=== PATIENT | female | born 1985 | race Caucasian/White ===

== ENCOUNTER 2021-12-28 08:54 | Outpatient (CLI) | payer BC, SELFPAY ==
--- NOTE | 2021-12-28 09:15 | CRLHL7_ITS ---
For Patients: As a result of the Century Cures Act, medical imaging exams and procedure reports are released immediately into your electronic medical record. You may view this report before your referring provider. If you have questions, please contact your health care provider. ULTRASOUND-GUIDED BREAST BIOPSY AND POST-BIOPSY DIGITAL MAMMOGRAM FOR BIOPSY MARKER PLACEMENT, 12/27/2021 CLINICAL HISTORY: LEFT breast mass. COMPARISON STUDIES: Ultrasound 12/20/2021. TECHNIQUE: Real-time ultrasound with image documentation was used for targeting the breast lesion. Core biopsy specimens were obtained using an automated gun with a 14-gauge biopsy needle. Post-biopsy CC and ML digital mammograms were obtained to document position of the biopsy marker. CONSENT and TIME OUT: The procedure, risks, and alternatives were explained to the patient and a consent was signed. [place] Protocol was followed including pre-procedure verification that relevant information/documentation was available, reviewed and properly matched to the patient; consent accurate and complete; and equipment and supplies available. Time Out was conducted just prior to starting procedure to verify the four required elements: patient identity, correct side/site marked (if applicable), procedure, relevant images/results properly labeled and displayed (if applicable). PROCEDURE: The patient was positioned supine on the ultrasound table. The breast was prepped with Betadine or ChloraPrep. 3 cc of 1% lidocaine was injected for superficial anesthesia and 10 cc of 1% lidocaine with epinephrine was injected for deeper anesthesia. Core samples were obtained. A sterile metal biopsy clip was placed percutaneously to maxwell the lesion position within the breast. The specimens were placed in 10% formalin and sent to the pathology department. Pressure was held on the biopsy site until all bleeding subsided. The skin incision was closed with Steri-Strips. An ice pack was positioned over the biopsy site. Post-biopsy instructions were reviewed with the patient, and a written copy was given to her. LATERALITY: LEFT. LESION: LEFT breast 1 o???clock, 9 cm from the nipple, hyperechoic, ill-defined mass measuring 2.1 x 2.7 x 1.1 cm. SUSPICION FOR MALIGNANCY: Low. NUMBER OF SAMPLES: 5. BIOPSY CLIP SHAPE: Coil. PROXIMITY OF CLIP TO TARGET: On target. IMPRESSION: Ultrasound-guided breast biopsy. When the pathology report is available, an addendum to this report will be made. ACR not applicable Britt Orozco M.D. Diagnostic/Breast Radiologist [email or web address] Transcribed: 10:38 a.m. DW/Dictated by: Britt Orozco MD @ 12/28/2021 10:04:00 AM ----- ADDENDUM ----- IMPRESSION: Pathology consistent with PASH. This is concordant. No atypia or malignancy. Resume age appropriate bilateral screening mammography. Dictated by Britt Orozco MD @ Dec 28 2021 10:04AM Signed by:?Britt Orozco MD @12/28/2021 1:31:03 PM (Electronically Signed)
--- NOTE | 2021-12-28 09:45 | CRLHL7_ITS ---
For Patients: As a result of the Century Cures Act, medical imaging exams and procedure reports are released immediately into your electronic medical record. You may view this report before your referring provider. If you have questions, please contact your health care provider. PLEASE SEE LEFT ULTRASOUND-GUIDED BIOPSY OF SAME DAY. CRL:[email or web address] JEANNIE/Dictated by: Britt Orozco MD @ 12/28/2021 10:04:00 AM (Electronically Signed)
== END 2021-12-28 08:55 | disposition home or self-care (01) ==
PROVIDERS: PCP Physician Assistant; Visit Provider Physician Assistant
DX: N63.20 Unspecified lump in the left breast, unspecified quadrant (principal); N64.89 Other specified disorders of breast; R92.8 Other abnormal and inconclusive findings on diagnostic imaging of breast
CPT/HCPCS: 19083; 77065; 88305; A4648; A4649

== ENCOUNTER 2023-06-18 19:25 | Outpatient (CLI) | payer BC, SELFPAY | END 2023-06-18 19:26 | disposition home or self-care (01) | LOC: SLEEP 19:26 | PROVIDERS: PCP Physician Assistant; Visit Provider Internal Medicine | DX: G47.33 Obstructive sleep apnea (adult) (pediatric) (principal) | CPT/HCPCS: 95810 ==

== ENCOUNTER 2024-02-13 20:26 | Day surgery (SDC) | payer BC, SELFPAY ==
[2024-02-13] VITALS (19 sets, daily range): BP systolic 128; BP diastolic 98; PULSE 92–110; RESP 14–16; TEMP 36.7; O2SAT 94–100; BMI 37.8
--- NOTE | 2024-02-13 20:37 | ED.GENADULT ---
HPI - General Adult General Chief complaint: GI Bleed Stated complaint: blood in stool Time Seen by Provider: 02/13/24 20:30 History of Present Illness HPI narrative: 1 week of rectal bleeding , states worse bleeding today with clots. came in tonight for severe rectal pain. tylenol this evening. 39-year-old woman presenting to the emergency department with concern of intense rectal area pain. She has had intermittent bleeding over the last week but today form some clots 1 larger clot she demonstrates as 5 cm or so was produced and then had severe pain. I acknowledge her tachycardia and she says she is in a lot of pain. Not feeling lightheaded or short of breath otherwise. No noted trauma. Did try some Tylenol. Has tried various dqgw-nwm-rnczjnh creams. Had felt a lump at 1 point. Not really with any abdominal pain. Does not seem to be aware of any hemorrhoidal diagnosis. Expresses embarrassment. Has had 3 kids. No diarrhea and has not noted constipation. Related Data Home Medications ?Medication ?Instructions ?Recorded ?Confirmed sertraline 100 mg tablet 100 mg PO DAILY 02/13/24 02/13/24 sertraline 50 mg tablet 50 mg PO QAM 02/13/24 02/13/24 trazodone 150 mg tablet 150 mg PO QPM 02/13/24 02/13/24 Allergies Allergy/AdvReac Type Severity Reaction Status Date / Time No Known Drug Allergies Allergy Verified 02/13/24 20:35 Review of Systems Status of ROS: Reports: 6 or more systems reviewed and unremarkable except as noted in History and below [facility] Social History Smoking Status: Never smoker How often do you have a drink containing alcohol: 2-4 times a month AUDIT-C Alcohol total score: 2 Non-prescribed substance use: denies use Exam Narrative: Exam Narrative: Clearly very uncomfortable. Labored in her breathing. Skin is warm and dry. Abdomen is soft and nontender. Heart is tachycardic in a regular rhythm. With option trader initially anal exam does show some small hemorrhoidal tissue. Appears particularly tender in the 12 o'clock position. Was far too tender to place anoscope initially. Had been anticipating injection. Const: Vital Signs, click to edit/add: Vital Signs - 24 hr 02/13/24 20:32 11/22/24 21:24 02/13/24 21:30 Temperature 98.0 F Pulse Rate 93 94 Pulse Rate [Pulse Oximeter] 110 H Respiratory Rate 16 Blood Pressure [Ri ght Upper Arm] 128/98 H Pulse Oximetry 98 96 95 Oxygen Delivery Me thod Room Air 02/13/24 21:40 02/13/24 21:45 02/13/24 21:50 Temperature Pulse Rate 102 H Pulse Rate [Pulse Oximeter] Respiratory Rate Blood Pressure [Ri ght Upper Arm] Pulse Oximetry 100 95 96 Oxygen Delivery Me thod 02/13/24 22:00 02/13/24 22:10 02/13/24 22:15 Temperature Pulse Rate 100 92 Pulse Rate [Pulse Oximeter] Respiratory Rate 14 Blood Pressure [Ri ght Upper Arm] Pulse Oximetry 96 96 96 Oxygen Delivery Me thod 02/13/24 22:20 02/13/24 22:30 02/13/24 22:54 Temperature Pulse Rate 94 96 Pulse Rate [Pulse Oximeter] Respiratory Rate Blood Pressure [Ri ght Upper Arm] Pulse Oximetry 98 96 95 Oxygen Delivery Me thod 02/13/24 23:00 02/13/24 23:00 02/13/24 23:10 Temperature Pulse Rate 96 Pulse Rate [Pulse Oximeter] Respiratory Rate 14 Blood Pressure [Ri ght Upper Arm] Pulse Oximetry 97 97 97 Oxygen Delivery Me thod 02/13/24 23:15 02/13/24 23:20 02/13/24 23:30 Temperature Pulse Rate 93 101 H Pulse Rate [Pulse Oximeter] Respiratory Rate Blood Pressure [Ri ght Upper Arm] Pulse Oximetry 94 96 97 Oxygen Delivery Me thod 02/13/24 23:40 02/13/24 23:50 02/14/24 00:00 Temperature Pulse Rate Pulse Rate [Pulse Oximeter] Respiratory Rate Blood Pressure [Ri ght Upper Arm] Pulse Oximetry 98 97 97 Oxygen Delivery Me thod 02/14/24 00:13 02/14/24 00:23 Temperature Pulse Rate Pulse Rate [Pulse Oximeter] Respiratory Rate 14 Blood Pressure [Ri ght Upper Arm] 119/81 Pulse Oximetry 96 97 Oxygen Delivery Me thod Documenting provider has reviewed patient's vital signs: yes Course Vital Signs Vital signs: Initial Vital Signs Temperature 98.0 F 02/13/24 20:32 Temperature Source Temporal Artery Scan 02/13/24 20:32 Pulse Rate 110 H 02/13/24 20:32 Respiratory Rate 16 02/13/24 20:32 Blood Pressure 128/98 H 02/13/24 20:32 Blood Pressure Mean 108 H 02/13/24 20:32 Blood Pressure Position Sitting 02/13/24 20:32 Pulse Oximetry 98 02/13/24 20:32 Oxygen Delivery Method Room Air 02/13/24 20:32 Vital Signs Temperature 98.0 F 02/13/24 20:32 Pulse Rate 110 H 02/13/24 20:32 Respiratory Rate 16 02/13/24 20:32 Blood Pressure 128/98 H 02/13/24 20:32 Pulse Oximetry 98 02/13/24 20:32 Oxygen Delivery Method Room Air 02/13/24 20:32 Temperature 98.0 F 02/13/24 20:32 Pulse Rate 101 H 02/13/24 23:30 Respiratory Rate 14 02/14/24 00:13 Blood Pressure 119/81 02/14/24 00:13 Pulse Oximetry 97 02/14/24 00:23 Oxygen Delivery Method Room Air 02/13/24 20:32 Medications Administered Medications: Discontinued Medications Generic Name Dose Route Start Last Admin Trade Name Freq PRN Reason Stop Dose Admin Hydromorphone HCl 0.5 mg 02/13/24 20:54 02/13/24 21:13 Hydromorphone 0.5 Mg/0.5 Ml Inj IVP 02/13/24 20:55 0.5 mg ONCE ONE Administration Hydromorphone HCl 0.5 mg 02/14/24 00:04 02/14/24 00:08 Hydromorphone 0.5 Mg/0.5 Ml Inj IVP 02/14/24 00:05 0.5 mg ONCE ONE Administration Hydromorphone HCl 0.5 mg 02/14/24 02:02 02/14/24 02:06 Hydromorphone 0.5 Mg/0.5 Ml Inj IVP 02/14/24 02:03 0.5 mg ONCE ONE Administration Sodium Chloride 500 mls @ 1,000 mls/hr 02/13/24 22:26 02/14/24 01:17 0.9 % Sodium Chloride 500 Ml IV 02/13/24 22:55 Infused .Q30M ONE Infusion Lorazepam 0.5 mg 02/13/24 20:55 02/13/24 21:13 Lorazepam 2 Mg/Ml Inj IVP 02/13/24 20:56 0.5 mg ONCE ONE Administration Medical Decision Making MDM Narrative Medical decision making narrative: Given degree of discomfort decided to stop in place IV. In the meantime also nursing placed uroject Also be given Dilaudid and lorazepam and then will reassess possible further investigation with anoscope. This though may not be possible. May be an anal fissure and secondary spasming. Lack of abdominal pain I think less likely to have diverticular bleed. Might have proctitis though has not described any unusual output other than blood. No diarrhea. Perianal/rectal abscess? Did place uroject which did help. IV lot and lorazepam as noted above. Still unable to place anoscope for further exam. Ultimately fanned 4 mL of lidocaine with epinephrine in the perianal area. This did review markedly improved pain allowing for placement of anus scope. I did not notice any abnormalities internally with this in his cope. No active bleeding. However when with true this she is indicating a bump in pain in the 11 o'clock position, with some retraction upon the anal tissue I am able to visualize some soft hemorrhoidal tissue throughout this area. There appears to be a small cut and separation of this tissue here causes marked increase in pain and I see oozing of what looks like purosanguinous material. I do not see clearly thrombosed hemorrhoidal tissue that I would be able to excise; I think her presented degree of pain will require some degree of sedation. Will be sending for CT imaging that pelvis looking for some perianal abscess or fistula. Did review these images and do not appreciate discrete fluid collection. Radiology over-read as below Technique: Postcontrast CT through the pelvis with multiplanar reformats following 108 milliliters Isovue 370 IV contrast Comparison: None Findings: Visualized bowel: No significant abnormality appreciated. The anorectal tissues demonstrate no evidence of appreciated mass lesion, abnormal enhancement, or contrast extravasation. Vascular: No acute abnormality appreciated. Lymph nodes: No acute abnormality appreciated. : IUD present. Bilateral cysts. Soft tissues: No significant abnormality appreciated. No perianal/perirectal stranding or fluid collection seen. Small fat containing umbilical hernia. Bones: No acute fracture. No lytic or blastic lesion. Impression: No abnormal findings appreciated to account for patient`s reported symptoms. Pain is escalating again. Dosed again with Dilaudid but still with intermittent tearing pains. She is desperate for some intervention ?can't you just knock me out?. Have discussed cares with General surgery and anticipated admission for further exam and potential treatment under anesthesia. Hospitalist accepted Medical Records Medical records reviewed: Yes I reviewed the patient's medical records Lab Data Lab results reviewed: Yes I reviewed the patient's lab results Labs: Lab Results 02/13/24 Range/Units 21:05 WBC 5.30 (4.50-11.00) K/uL RBC 3.84 L (4.00-5.20) m/uL Hgb 12.8 (12.0-16.0) gm/dL Hct 38.6 (33.0-51.0) % MCV 101 H (80-100) fL MCH 33 (26-34) pg MCHC 33 (32-36) gm/dL RDW Coeff of Shaun 12.1 (11.5-15.5) % Plt Count 299 (140-440) K/uL Neut % (Auto) 43.9 (42.0-72.0) % Lymph % (Auto) 44.9 H (20-44) % [place] % (Auto) 7.0 (0.0-11.0) % Eos % (Auto) 3.8 (0.0-7.0) % Baso % (Auto) 0.4 (0.0-3.0) % Neut # (Auto) 2.33 (1.7-7.0) K/uL Lymph # (Auto) 2.40 (0.90-2.90) K/uL [place] # (Auto) 0.40 (0.00-0.90) K/UL Eos # (Auto) 0.20 (0.00-0.50) K/uL Baso # (Auto) 0.02 (0.00-0.30) K/uL Abs Immat Gran (auto) 0.00 (0.00-0.30) K/uL Imm/Tot Granulo (auto) 0.0 % Discharge Plan Discharge Clinical Impression: Anal pain, Hemorrhoids Patient Disposition: Admitted As Observation
[2024-02-13] MEDS: LORazepam 2 MG/ML inj 0.5 MG IVP (21:13)
[2024-02-13] MEDS: HYDROmorphone 0.5 mg/0.5 ml inj IVP (21:13)
[2024-02-13 21:20] LABS: Basophils Absolute Auto 0.02 K/uL (0.00-0.30); Basophils Percent Auto 0.4 % (0.0-3.0); Eosinophils Percent Auto 3.8 % (0.0-7.0); Hematocrit 38.6 % (33.0-51.0); Hemoglobin* 12.8 gm/dL (12.0-16.0); Lymphocytes Percent Auto 44.9 % (20-44); Mean Corpuscular HGB Conc 33 gm/dL (32-36); Mean Corpuscular Hemoglobin 33 pg (26-34); Mean Corpuscular Volume 101 fL (80-100); Neutrophils Absolute Auto 2.33 K/uL (1.7-7.0); Neutrophils Percent Auto 43.9 % (42.0-72.0); Platelet Count* 299 K/uL (140-440); RDW Coefficient of Variation % 12.1 % (11.5-15.5); Red Blood Count 3.84 m/uL (4.00-5.20)
[2024-02-13 21:27] LABS: Slide Review Reflex No
--- NOTE | 2024-02-13 22:25 | CRLHL7_ITS ---
For Patients: As a result of the Century Cures Act, medical imaging exams and procedure reports are released immediately into your electronic medical record. You may view this report before your referring provider. If you have questions, please contact your health care provider. Indication: Rectal bleeding, perianal pain Technique: Postcontrast CT through the pelvis with multiplanar reformats following 108 milliliters Isovue 370 IV contrast Comparison: None Findings: Visualized bowel: No significant abnormality appreciated. The anorectal tissues demonstrate no evidence of appreciated mass lesion, abnormal enhancement, or contrast extravasation. Vascular: No acute abnormality appreciated. Lymph nodes: No acute abnormality appreciated. : IUD present. Bilateral cysts. Soft tissues: No significant abnormality appreciated. No perianal/perirectal stranding or fluid collection seen. Small fat containing umbilical hernia. Bones: No acute fracture. No lytic or blastic lesion. Impression: No abnormal findings appreciated to account for patient`s reported symptoms. Please note that all CT scans at this facility use dose modulation, iterative reconstruction, and/or weight-based dosing when appropriate to reduce radiation dose to as low as reasonably achievable. Dictated by Adalberto Parker MD @ 02/13/2024 11:00:14 PM (Electronically Signed)
[2024-02-14] VITALS (28 sets, daily range): BP systolic 101–126; BP diastolic 58–88; PULSE 66–104; RESP 10–20; TEMP 36–36.9; O2SAT 96–100; BMI 37.8
[2024-02-14] MEDS: HYDROmorphone 0.5 mg/0.5 ml inj IVP ×4 (00:08→22:30)
[2024-02-14] MEDS: 0.9 % SODIUM CHLORIDE 500 ML 500 ML 1000 ML IV (00:15)
--- NOTE | 2024-02-14 05:00 | PC.NURSE ---
Shift note: Pt arrived at the unit at 0230 on a bed. She conscious, alert and oriented on arrival. Pt is pleasant and cooperate to treatment and care. She endorsed rectal bleeding worse yesterday with clots and pain. Patient rates her pain at 7/10. Ice pack applied which was effective according patient. V/S on admission was stable as per chart. No rectal bleeding since admission and as at the time of this report but rated pain between 5 and 7. Nurse is waiting for hospitalist review. NPO status maintained for possible surgery today. Ice chips given for dry mouth.
--- NOTE | 2024-02-14 07:42 | W.PM.THH&P_ITS ---
Telehealth- H&P: HPI History of Present Illness Date Seen: 02/14/24 Chief complaint: bloood in stool Narrative: Kari Raya is seen as an Interactive Telehealth visit. Kari Raya is a 39 year old female with Medical history significant for gastric bypass who presented emergency department with complaints of rectal bleeding. Patient reports she has been having rectal pain for quite some time now however over the last 1 week she has been noticing bleeding. However tonight she felt like there was a larger clot that she passed along with few smaller ones. She is still having rectal pain. She denies any abdominal pain, nausea vomiting, fever chills headache or dizziness. Giov-peh-jejvyac creams has not helped. In the emergency department she had Uro-Jet placed. She was also given Dilaudid and lorazepam. ER provider did lidocaine and epi injection to perianal area and were able to do anoscope which showed soft hemorrhoidal tissue throughout the area, appears to be small And separation of the tissue causing marked increase in pain and there was a bruising of her looks like purulent sanguinous material. There is no clear visualization of thrombosed hemorrhoidal tissue. CT abdomen pelvis was done which was negative. ER provider discussed case with general surgery who accepted the patient for possible treatment under anesthesia. Hospitalist service was asked to admit the patient. Review of Systems Narrative: Complete ROS was performed, pertinent positives and negatives per HPI. [facility] Social History What is your current living situation?: I presently have a place to live Problems where you live: no known problems Problems where you live details: N/A In the past 12 months, utilities in danger of being shut off: no In the past 12 mos, have been you worried that your food would run out before you had money to buy more?: never true In the past 12 mos, the food you bought just didn't last and you didn't have money to buy more?: never true Highest level of school completed/degree received: Bachelor's degree Smoking Status: Never smoker Do you use any of these nicotine containing products: None How often do you have a drink containing alcohol: 2-4 times a month Alcohol type: wine How often do you have six or more drinks on one occasion: Never AUDIT-C Alcohol total score: 2 Non-prescribed substance use: denies use How often does anyone, including family, friends and others, physically hurt you : never How often does anyone, including family, friends and others, insult or talk down to you: never How often does anyone, including family, friends and others, threaten you with harm: never How often does anyone, including family, friends and others, scream or curse at you: never service: No Meds Home Medications and Allergies Home Medications ?Medication ?Instructions ?Recorded ?Confirmed ?Type sertraline 100 mg tablet 100 mg PO DAILY 02/13/24 02/13/24 History sertraline 50 mg tablet 50 mg PO QAM 02/13/24 02/13/24 History trazodone 150 mg tablet 150 mg PO QPM 02/13/24 02/13/24 History Allergies Allergy/AdvReac Type Severity Reaction Status Date / Time No Known Drug Allergies Allergy Verified 02/13/24 20:35 Exam Narrative Exam Narrative: Physical Exam GENERAL: ?vital signs reviewed, well developed and nourished, in no distress HEENT: pupils are equal round and reactive to light, extraocular movements are grossly within normal limits and oral mucosa is moist. NECK: Supple HEART: Regular rate and rhythm without any rubs, murmurs, or gallops. LUNGS: Clear to auscultation bilaterally with good air movement throughout ABDOMEN: Observation from nurse assisted exam, abdomen appears soft, nontender, and nondistended with Positive bowel sounds noted. EXTREMITIES: Strength and sensation is observed to be grossly within normal limits in the upper and lower extremities.? No focal strength deficit is observed. SKIN:? Observed warm and dry with color normal Const Vital Signs, click to edit/add: Vital Signs - 24 hr 02/13/24 20:32 02/13/24 21:24 02/13/24 21:30 Temperature 98.0 F Pulse Rate 93 94 Pulse Rate [Pulse Oximeter] 110 H Pulse Rate [Right Pulse Oximeter] Respiratory Rate 16 Blood Pressure [Right Arm] Blood Pressure [Right Upper Arm] 128/98 H Pulse Oximetry 98 96 95 Oxygen Delivery Method Room Air 02/13/24 21:40 02/13/24 21:45 02/13/24 21:50 Temperature Pulse Rate 102 H Pulse Rate [Pulse Oximeter] Pulse Rate [Right Pulse Oximeter] Respiratory Rate Blood Pressure [Right Arm] Blood Pressure [Right Upper Arm] Pulse Oximetry 100 95 96 Oxygen Delivery Method 02/13/24 22:00 02/13/24 22:10 02/13/24 22:15 Temperature Pulse Rate 100 92 Pulse Rate [Pulse Oximeter] Pulse Rate [Right Pulse Oximeter] Respiratory Rate 14 Blood Pressure [Right Arm] Blood Pressure [Right Upper Arm] Pulse Oximetry 96 96 96 Oxygen Delivery Method 02/13/24 22:20 02/13/24 22:30 02/13/24 22:54 Temperature Pulse Rate 94 96 Pulse Rate [Pulse Oximeter] Pulse Rate [Right Pulse Oximeter] Respiratory Rate Blood Pressure [Right Arm] Blood Pressure [Right Upper Arm] Pulse Oximetry 98 96 95 Oxygen Delivery Method 02/13/24 23:00 02/13/24 23:00 02/13/24 23:10 Temperature Pulse Rate 96 Pulse Rate [Pulse Oximeter] Pulse Rate [Right Pulse Oximeter] Respiratory Rate 14 Blood Pressure [Right Arm] Blood Pressure [Right Upper Arm] Pulse Oximetry 97 97 97 Oxygen Delivery Method 02/13/24 23:15 02/13/24 23:20 02/13/24 23:30 Temperature Pulse Rate 93 101 H Pulse Rate [Pulse Oximeter] Pulse Rate [Right Pulse Oximeter] Respiratory Rate Blood Pressure [Right Arm] Blood Pressure [Right Upper Arm] Pulse Oximetry 94 96 97 Oxygen Delivery Method 02/13/24 23:40 02/13/24 23:50 02/14/24 00:00 Temperature Pulse Rate Pulse Rate [Pulse Oximeter] Pulse Rate [Right Pulse Oximeter] Respiratory Rate Blood Pressure [Right Arm] Blood Pressure [Right Upper Arm] Pulse Oximetry 98 97 97 Oxygen Delivery Method 02/14/24 00:13 02/14/24 00:23 02/14/24 02:24 Temperature 98.0 F Pulse Rate Pulse Rate [Pulse Oximeter] 85 Pulse Rate [Right Pulse Oximeter] Respiratory Rate 14 14 Blood Pressure [Right Arm] Blood Pressure [Right Upper Arm] 119/81 112/79 Pulse Oximetry 96 97 97 Oxygen Delivery Method Room Air 02/14/24 02:25 02/14/24 02:44 02/14/24 02:50 Temperature 98.0 F 98.1 F Pulse Rate Pulse Rate [Pulse Oximeter] 85 Pulse Rate [Right Pulse Oximeter] 71 Respiratory Rate 14 14 16 Blood Pressure [Right Arm] 125/87 Blood Pressure [Right Upper Arm] 112/79 Pulse Oximetry 97 97 Oxygen Delivery Method Room Air Room Air Hospitalist - H&P: Result Labs Labs: Short CBC 02/13/24 Range/Units 21:05 WBC 5.30 (4.50-11.00) K/uL Hgb 12.8 (12.0-16.0) gm/dL Hct 38.6 (33.0-51.0) % Plt Count 299 (140-440) K/uL Assessment and Plan Assessment and plan (1) Hemorrhoids: Status: Acute (2) Anal pain: Status: Acute Plan admit to hospital for general surgery eval in am. cont with pain control. Resume home meds. hold of DVT proph due to antcipated procedure in am. Telehealth: Statement Statement Telehealth Visit: Today's History and Physical is provided via interactive telehealth by Sofie Justin MD.? Patient is located at [facility].? Provider is located at [facility].? Nursing staff assisted with the patient's exam. The visit being done today meets criteria for a telehealth visit and the patient or patient?s parent/guardian is aware the visit is a telehealth visit. Camera Start Time: 05:25 Camera End Time: 05:36
[2024-02-14] MEDS: HYDROmorphone 0.5 mg/0.5 ml inj 0.4 MG IVP ×2 (08:02→12:05)
[2024-02-14] MEDS: SODIUM CHLORIDE 0.9 % (FLUSH) 10 ML SYRINGE 5 ML IVF ×3 (08:04→12:06)
[2024-02-14] MEDS: ONDANSETRON 2 MG/ML inj 4 MG IVP (08:12)
[2024-02-14] MEDS: LORazepam 2 MG/ML inj 0.5 MG IVP (10:30)
--- NOTE | 2024-02-14 14:14 | P.GSCN_ITS ---
History of Present Illness Consult details Date Seen: 02/14/24 Consult date: 02/14/24 Narrative: Patient presented to the emergency department for severe rectal pain and passage of a large clot. The pain started for her earlier this week. Last night it became very intense, causing her to come into the emergency department. She has never had anything like this before. She does report associated diarrhea and nausea, no fevers at home. She is otherwise healthy. Review of Systems Status of ROS: Reports: 10 or more systems reviewed and unremarkable except as noted in History and below PFSH PFS Social History What is your current living situation?: I presently have a place to live Problems where you live: no known problems Problems where you live details: N/A In the past 12 months, utilities in danger of being shut off: no In the past 12 mos, have been you worried that your food would run out before you had money to buy more?: never true In the past 12 mos, the food you bought just didn't last and you didn't have money to buy more?: never true Highest level of school completed/degree received: Bachelor's degree Smoking Status: Never smoker Do you use any of these nicotine containing products: None How often do you have a drink containing alcohol: 2-4 times a month Alcohol type: wine How often do you have six or more drinks on one occasion: Never AUDIT-C Alcohol total score: 2 Non-prescribed substance use: denies use How often does anyone, including family, friends and others, physically hurt you : never How often does anyone, including family, friends and others, insult or talk down to you: never How often does anyone, including family, friends and others, threaten you with harm: never How often does anyone, including family, friends and others, scream or curse at you: never service: No Meds Home Medications and Allergies Home Medications ?Medication ?Instructions ?Recorded ?Confirmed ?Type trazodone 150 mg tablet 150 mg PO HS 02/13/24 02/14/24 History sertraline 50 mg tablet 150 mg PO DAILY 02/14/24 02/14/24 History Allergies Allergy/AdvReac Type Severity Reaction Status Date / Time No Known Drug Allergies Allergy Verified 02/13/24 20:35 Exam Narrative: Exam Narrative: General: Alert and oriented, no acute distress Respiratory: Equal breath rise bilaterally, maintained on room air CV: Well perfused : Erythema and induration posterior midline, tender to the touch. Digital rectal exam and anoscopy deferred. Const: Vital Signs, click to edit/add: Vital Signs - 24 hr 02/13/24 20:32 02/13/24 21:24 02/13/24 21:30 Temperature 98.0 F Pulse Rate 93 94 Pulse Rate [Pulse Oximeter] 110 H Pulse Rate [Right Pulse Oximeter] Respiratory Rate 16 Blood Pressure [Le ft Arm] Blood Pressure [Ri ght Arm] Blood Pressure [Ri ght Upper Arm] 128/98 H Pulse Oximetry 98 96 95 Oxygen Delivery Me thod Room Air 02/13/24 21:40 02/13/24 21:45 02/13/24 21:50 Temperature Pulse Rate 102 H Pulse Rate [Pulse Oximeter] Pulse Rate [Right Pulse Oximeter] Respiratory Rate Blood Pressure [Le ft Arm] Blood Pressure [Ri ght Arm] Blood Pressure [Ri ght Upper Arm] Pulse Oximetry 100 95 96 Oxygen Delivery Me thod 02/13/24 22:00 02/13/24 22:10 02/13/24 22:15 Temperature Pulse Rate 100 92 Pulse Rate [Pulse Oximeter] Pulse Rate [Right Pulse Oximeter] Respiratory Rate 14 Blood Pressure [Le ft Arm] Blood Pressure [Ri ght Arm] Blood Pressure [Ri ght Upper Arm] Pulse Oximetry 96 96 96 Oxygen Delivery Me thod 02/13/24 22:20 02/13/24 22:30 02/13/24 22:54 Temperature Pulse Rate 94 96 Pulse Rate [Pulse Oximeter] Pulse Rate [Right Pulse Oximeter] Respiratory Rate Blood Pressure [Le ft Arm] Blood Pressure [Ri ght Arm] Blood Pressure [Ri ght Upper Arm] Pulse Oximetry 98 96 95 Oxygen Delivery Me thod 02/13/24 23:00 02/13/24 23:00 02/13/24 23:10 Temperature Pulse Rate 96 Pulse Rate [Pulse Oximeter] Pulse Rate [Right Pulse Oximeter] Respiratory Rate 14 Blood Pressure [Le ft Arm] Blood Pressure [Ri ght Arm] Blood Pressure [Ri ght Upper Arm] Pulse Oximetry 97 97 97 Oxygen Delivery Me thod 02/13/24 23:15 02/13/24 23:20 02/13/24 23:30 Temperature Pulse Rate 93 101 H Pulse Rate [Pulse Oximeter] Pulse Rate [Right Pulse Oximeter] Respiratory Rate Blood Pressure [Le ft Arm] Blood Pressure [Ri ght Arm] Blood Pressure [Ri ght Upper Arm] Pulse Oximetry 94 96 97 Oxygen Delivery Me thod 02/13/24 23:40 02/13/24 23:50 02/14/24 00:00 Temperature Pulse Rate Pulse Rate [Pulse Oximeter] Pulse Rate [Right Pulse Oximeter] Respiratory Rate Blood Pressure [Le ft Arm] Blood Pressure [Ri ght Arm] Blood Pressure [Ri ght Upper Arm] Pulse Oximetry 98 97 97 Oxygen Delivery Me thod 02/14/24 00:13 02/14/24 00:23 02/14/24 02:24 Temperature 98.0 F Pulse Rate Pulse Rate [Pulse Oximeter] 85 Pulse Rate [Right Pulse Oximeter] Respiratory Rate 14 14 Blood Pressure [Le ft Arm] Blood Pressure [Ri ght Arm] Blood Pressure [Ri ght Upper Arm] 119/81 112/79 Pulse Oximetry 96 97 97 Oxygen Delivery Me thod Room Air 02/14/24 02:25 02/14/24 02:44 02/14/24 02:50 Temperature 98.0 F 98.1 F Pulse Rate Pulse Rate [Pulse Oximeter] 85 Pulse Rate [Right Pulse Oximeter] 71 Respiratory Rate 14 14 16 Blood Pressure [Le ft Arm] Blood Pressure [Ri ght Arm] 125/87 Blood Pressure [Ri ght Upper Arm] 112/79 Pulse Oximetry 97 97 Oxygen Delivery Me thod Room Air Room Air 02/14/24 07:50 02/14/24 07:50 02/14/24 11:00 Temperature 98.3 F 98.4 F Pulse Rate Pulse Rate [Pulse Oximeter] Pulse Rate [Right Pulse Oximeter] 83 83 79 Respiratory Rate 18 18 18 Blood Pressure [Le ft Arm] 101/62 110/68 Blood Pressure [Ri ght Arm] Blood Pressure [Ri ght Upper Arm] Pulse Oximetry 97 98 Oxygen Delivery Me thod Room Air Room Air Results Labs Labs: Abnormal lab results 02/13/24 Range/Units 21:05 RBC 3.84 L (4.00-5.20) m/uL MCV 101 H (80-100) fL Lymph % (Auto) 44.9 H (20-44) % All other labs normal. Imaging CT scan - pelvis: report reviewed and image reviewed Progress Note:A&P Assessment and plan (1) Perianal abscess: Status: Acute Assessment and Plan: Patient is a 39-year-old female with clinical exam concerning for possible perianal abscess. A CT scan was performed, this does not demonstrate any large underlying fluid collection. No evidence of external hemorrhoids, skin tags or necrotic tissue during my examination. Due to the patient's discomfort recommend an exam under anesthesia with incision and drainage of perianal abscess. Risks and benefits of surgery were discussed at length the patient. Risks included, but were not limited to: Bleeding, infection, risk of damage to surrounding structures and possible need for additional procedures. All questions and concerns were addressed with patient agreeing to proceed. Plan OR for exam under anesthesia, incision and drainage perianal abscess
[2024-02-14] MEDS: PIPERACILLIN/TAZOBACTAM 3.375 GM INJ IVPB (16:13)
[2024-02-14] MEDS: BUPIVACAINE 0.5% 30 ML INJECTION (16:23)
[2024-02-14] MEDS: BUPIVACAINE LIPOSOME 133 MG/10 ML INJ INFILTRATI (16:23)
--- NOTE | 2024-02-14 16:38 | W.ANESCHARGE ---
Anesthesia Charges Start Date/Time Anesthesia Start Date: 02/14/24 Anesthesia Start Time: 15:45 Stop Date/Time Anesthesia Stop Date: 02/14/24 Anesthesia Stop Time: 16:34
--- NOTE | 2024-02-14 16:41 | PM.GSPRC ---
Operative Note Date of procedure: 02/14/24 Pre-op diagnosis: Perianal abscess Post-op diagnosis: Intersphincteric abscess Type of Procedure: Exam under anesthesia, incision and drainage perianal abscess Indications: Patient is a 39-year-old female who presented with severe perianal pain. Risks and benefits of exam under anesthesia with incision and drainage of perianal abscess were discussed at length. Risks include, but are not limited to: Infection, bleeding, recurrence, urinary retention, changes in fecal continence with any anal surgery and the need for additional procedures. All questions and concerns were addressed with patient agreeing to proceed. Procedure Description: The patient was brought to the Operating Room, placed in the supine position, a spinal and and anesthetic was administered by Anesthesia without difficulty. The patient was then transferred to the Operating Room table, placed in the prone jackknife position with appropriate bumps and padding. Care was taken to ensure the genitalia and breasts were properly positioned on the hip and chest rolls, respectively. The shoulders and arms were positioned with care to protect the brachial plexus. The buttocks were taped laterally. A sterile prep and drape was done in the usual fashion. A formal timeout for patient safety was performed in accordance with hospital protocol, thereby correctly matching this patient with their diagnosis and intended procedure. External examination, digital rectal examination, and anoscopic examination were all done and revealed a firmness posterior midline with overlying erythema and induration. A 1 cm vertical incision was made approximately 1 cm away from the anal verge directly over this area with very minimal purulence noted. Some blunt dissection was performed with no undrained pockets or fluid collections appreciated. On further palpation and with examination of the anoscope there was a 1 cm laceration of the mucosa posterior midline within the rectal canal. This was initially difficult to appreciate secondary to the mucosal folds. There was a small amount of purulence and underlying abscess cavity appreciated. The cavity measured approximately 1 x 1 x 0.5 cm in size. This did appear to be the main source of the surrounding erythema and induration with evidence of spontaneous rupture prior to proceeding to the operating room. Both cavities were thoroughly irrigated and hemostasis assured. There was no evidence of connection between the 2 incisions. 1 in iodoform tape was placed within the outer perianal incision. Local anesthetic of Exparel and bupivacaine was injected locally and a bilateral pudendal block performed. The patient tolerated procedure well. There were no apparent complications. Instrument, sponge, and needle counts were correct at the end of the case. Findings: Intersphincteric abscess with evidence of rupture prior to proceeding to the operating room. Underlying abscess cavity 1 x 1 x 0.5 cm in size. Anesthesia: MAC and spinal Surgeon: Faye Ledesma MD Estimated blood loss (mL): 5 Condition: stable Disposition: PACU
[2024-02-14] MEDS: AMOXICILLIN/CLAVULANATE 875 mg/125 mg TABLET PO (18:34)
--- NOTE | 2024-02-14 19:36 | PC.NURSE ---
Pt rating 0/10 pain upon returning from PACU after I&D of rectal explorative under anesthesia, see Dr. Ledesma's surgical note. Drain tape from rectum with peripad for any drainage. Up independently, tolerates regular diet, denies n/v.
[2024-02-14] MEDS: TRAZODONE HCL 50 MG TABLET 150 MG PO (21:02)
[2024-02-15 02:57] VITALS: BP 102/65; PULSE 77; RESP 16; TEMP 36.8; O2SAT 94
[2024-02-15] MEDS: ACETAMINOPHEN 325 MG TABLET 650 MG PO (05:36)
[2024-02-15] MEDS: OXYCODONE 5 MG TABLET PO ×2 (05:36→10:09)
--- NOTE | 2024-02-15 06:03 | PC.NURSE ---
End of shift: Pt AxOx4, pleasant, and cooperative. Pt rated pain 3-10/10 of the rectum. Pt stated that she wanted to ?Rip the tape out of her butt? due to the pain it has been causing. Field Staff utilized PRN pain medication, repositioning, and active ice. Pt has small bloody drainage from the rectum. Pad changed x1. Pt indep in room. Pt continent of the bladder. Tolerating reg diet/fluids well. Pt denies nausea. Pt appears resting with call light in reach. ?
[2024-02-15] MEDS: AMOXICILLIN/CLAVULANATE 875 mg/125 mg TABLET PO (08:29)
[2024-02-15 08:32] VITALS: BP 103/71; PULSE 98; RESP 18; TEMP 36.5; O2SAT 99
[2024-02-15] MEDS: KETOROLAC 15 MG/ML inj IVP (10:09)
--- NOTE | 2024-02-15 12:29 | PM.DS1 ---
DS: Providers Provider Date Seen: 02/15/24 Primary care physician: BRAYDEN Dennis Attending Physician on discharge: Faye Ledesma MD DS: Summary Hospital Course Hospital Course: Patient presented to the emergency department on Friday evening with a 1 week history of worsening rectal pain. That Friday she had a large clot pass. I took her to the operating room on Friday for an exam under anesthesia with evidence of an intersphincteric abscess that had spontaneously ruptured. An incision was made posterior midline as well, but no underlying abscess appreciated in that area just associated cellulitis. No fistulous connection between the 2 incisions. The posterior midline incision was packed with iodoform, this was removed on postop day 1. She continues on oral antibiotics, to complete a one-week course. At the time of discharge the patient's pain was well controlled on oral medications, she remained afebrile, she was ambulating independently and tolerating regular diet. Will plan to follow up with the patient in 2 weeks to assess healing. She was encouraged to keep the area clean and soak in a bath daily. Time Spent with Patient Time attestation: Total time spent providing and/or coordinating discharge services: Exam Narrative: Exam Narrative: General: Alert and oriented, no acute distress. Nontoxic in appearance Respiratory: Equal breath rise bilaterally, maintained on room air CV: Well perfused : Posterior midline packing removed, no significant surrounding erythema or induration. Moderate amount of serosanguineous drainage on pad. Const: Vital Signs, click to edit/add: Vital Signs - 24 hr 02/14/24 15:00 02/14/24 15:00 02/14/24 16:29 Temperature 96.8 F L Pulse Rate 81 Pulse Rate [Right Pulse Oximeter] Respiratory Rate 18 18 18 Blood Pressure 111/68 Blood Pressure [Ri ght Arm] Pulse Oximetry 97 97 Oxygen Delivery Me thod Room Air Room Air 02/14/24 16:35 02/14/24 16:40 02/14/24 16:45 Temperature 96.8 F L Pulse Rate 81 74 78 Pulse Rate [Right Pulse Oximeter] Respiratory Rate 11 L 14 12 Blood Pressure 112/76 106/69 114/72 Blood Pressure [Ri ght Arm] Pulse Oximetry 98 100 100 Oxygen Delivery Me thod Room Air Room Air Room Air 02/14/24 16:50 02/14/24 16:55 02/14/24 17:00 Temperature 96.8 F L Pulse Rate 69 66 68 Pulse Rate [Right Pulse Oximeter] Respiratory Rate 10 L 12 12 Blood Pressure 101/72 120/76 119/79 Blood Pressure [Ri ght Arm] Pulse Oximetry 99 97 97 Oxygen Delivery Me thod Room Air Room Air Room Air 02/14/24 17:08 02/14/24 17:15 02/14/24 17:30 Temperature 98.2 F 98.2 F 98.2 F Pulse Rate 71 75 73 Pulse Rate [Right Pulse Oximeter] Respiratory Rate 16 16 18 Blood Pressure 113/79 115/79 117/85 Blood Pressure [Ri ght Arm] Pulse Oximetry 97 98 98 Oxygen Delivery Me thod Room Air Room Air Room Air 02/14/24 17:45 02/14/24 18:00 02/14/24 18:30 Temperature 98.2 F 98.4 F 98.1 F Pulse Rate 71 87 104 H Pulse Rate [Right Pulse Oximeter] Respiratory Rate 18 20 20 Blood Pressure 122/81 120/88 126/75 Blood Pressure [Ri ght Arm] Pulse Oximetry 98 97 98 Oxygen Delivery Me thod Room Air Room Air Room Air 02/14/24 19:00 02/14/24 20:00 02/14/24 21:00 Temperature 98.2 F 98.1 F 98.5 F Pulse Rate 76 79 79 Pulse Rate [Right Pulse Oximeter] Respiratory Rate 18 20 16 Blood Pressure 116/75 112/75 116/85 Blood Pressure [Ri ght Arm] Pulse Oximetry 97 96 97 Oxygen Delivery Me thod Room Air Room Air Room Air 02/14/24 22:00 02/14/24 23:00 02/15/24 02:57 Temperature 98.5 F 97.8 F 98.3 F Pulse Rate 80 78 Pulse Rate [Right Pulse Oximeter] 77 Respiratory Rate 16 16 16 Blood Pressure 105/58 L 104/61 Blood Pressure [Ri ght Arm] 102/65 Pulse Oximetry 98 96 94 Oxygen Delivery Me thod Room Air Room Air Room Air 02/15/24 08:32 Temperature 97.7 F Pulse Rate Pulse Rate [Right Pulse Oximeter] 98 Respiratory Rate 18 Blood Pressure Blood Pressure [Ri ght Arm] 103/71 Pulse Oximetry 99 Oxygen Delivery Me thod Room Air Discharge Plan Discharge Disposition: Home w/ Parent or Adult Discharging Surgeon: Faye Ledesma Follow-Up Appointment: 2 week follow up, [facility] Prescriptions: New hydrocodone-acetaminophen 5-325 mg tablet 1 tab PO Q6H PRN (Reason: pain) Qty: 25 0RF senna 8.6 mg capsule 8.6 mg PO DAILY PRN (Reason: constipation) Qty: 90 0RF lidocaine HCl [Lidozion] 3 % lotion 1 applic topical TID PRN (Reason: pain) Qty: 177 0RF amoxicillin-pot clavulanate 875-125 mg tablet 1 tab PO BID Qty: 14 0RF Continued trazodone 150 mg tablet 150 mg PO HS sertraline 50 mg tablet 150 mg PO DAILY Activity Level: No strenuous activity Activity Detail: Activity as tolerated. Avoid strenuous activity. No lifting greater than 20 lb for 2 weeks. Discharge Diet: Regular Patient Instructions: Hydrocodone/Acetaminophen (By mouth), Lidocaine (On the skin), Senna (By mouth), Sitz Bath (DC), Rectal Abscess (DC), Dr. Chapin's Post Hemorrhoidectomy Instructions Additional Instructions: You were prescribed a narcotic pain medication. In addition you may supplement with Tylenol and/or ibuprofen. Be sure to not exceed greater than 4 g of Tylenol in a 24 hour period. While on narcotic pain medicine please take stool softeners. A prescription of stool softeners has been sent to the pharmacy. Stop if having greater than 2 stools per day. A prescription for lidocaine gel has also been sent to your pharmacy, another option would an [id number] lidocaine lotion. Soak in his Sitz baths for comfort daily. Follow-up with Dr. Ledesma in 2-3 weeks. Please call if you are experiencing severe pain, nausea, vomiting, difficulty urinating, fever or not had a bowel movement in 4 days after surgery. Follow-up: Judi Owen PA [Primary Care Provider] - Discharge Orders: Discharge Order (Routine); Ordered 02/15/24 Ordered By: Faye Ledesma
== END 2024-02-15 15:03 | disposition home or self-care (01) ==
LOC: ED 02-14 02:05 → OR 02-14 02:16 → MEDSURG 02-14 02:16
PROVIDERS: Emergency Provider Family Medicine; PCP Physician Assistant; Visit Provider Surgery
PROC: (CPT 46050; principal; 2024-02-14 14:30)
DX: K61.0 Anal abscess (principal); K61.4 Intrasphincteric abscess; K62.89 Other specified diseases of anus and rectum; R00.0 Tachycardia, unspecified
CPT/HCPCS: 46050; 00902; 36415; 72193; 85025; 86140; 94761; 99284; 99285; A9270; C9290; J0665; J1100; J1171; J1885; J2060; J2250; J2371; J2405; J2543; J2704; J7030; Q9967

== ENCOUNTER 2025-02-24 18:34 | Emergency (ER) | payer BC, SELFPAY ==
[2025-02-24 18:39] VITALS: BP 145/107; PULSE 122; RESP 18; TEMP 36.7; O2SAT 97; BMI 42.9
--- NOTE | 2025-02-24 18:46 | ED.GENADULT ---
HPI - General Adult General Date Seen: 02/24/25 Chief complaint: Breast Symptoms Stated complaint: L breast infection, very painful Time Seen by Provider: 02/24/25 18:46 Source: patient and RN notes reviewed Mode of arrival: ambulatory Limitations: no limitations History of Present Illness HPI narrative: Kari is a very pleasant 40-year-old female with history of recent Ozempic initiation, perianal abscess, and frequent breast pustules who comes to the emergency room with increasing redness and pain in her left breast. Kari has had years of difficulty with simple formation on her breasts and arms. She notes that earlier this week she actually had a ultrasound because of an area of concern on a recent mammogram. It turned out to be okay according to her. Today she was in the shower and noticed left breast pain and saw a lot of redness around 1 of the pustules. She has not had fever or chills. Earlier today she was somewhat nauseated. Denies a history of MRSA. In the past [employer] has worked well for her. Related Data Home Medications ?Medication ?Instructions ?Recorded ?Confirmed trazodone 150 mg tablet 150 mg PO HS 02/13/24 02/24/25 sertraline 50 mg tablet 150 mg PO DAILY 02/14/24 02/24/25 semaglutide 0.25 mg or 0.5 mg (2 0.25 mg subcut QWEEK 02/24/25 02/24/25 mg/3 mL) subcutaneous pen injector (Ozempic) tirzepatide (weight loss) 2.5 2.5 mg subcut 02/24/25 mg/0.5 mL subcutaneous pen injector (Zepbound) Previous Rx's ?Medication ?Instructions ?Recorded sennosides 8.6 mg capsule (senna) 8.6 mg PO DAILY PRN constipation 02/14/24 #90 caps Allergies Allergy/AdvReac Type Severity Reaction Status Date / Time No Known Drug Allergies Allergy Verified 02/24/25 18:38 Review of Systems Status of ROS: Reports: 6 or more systems reviewed and unremarkable except as noted in History and below Const: Denies: fever, chills or fatigue ENMT: Denies: nasal congestion Cardio: Denies: shortness of breath with exertion Resp: Denies: shortness of breath or cough GI: Reports: nausea; Denies: vomiting Integ/Breast: Reports: redness, skin pain, skin tenderness and sores Endo: Denies: fatigue PFSH PFS Social History What is your current living situation?: I presently have a place to live Problems where you live: no known problems Problems where you live details: N/A In the past 12 months, utilities in danger of being shut off: no In past 12 months, lack of transportation kept you from medical appts, meetings, work, or getting things needed for daily living: no In the past 12 mos, have been you worried that your food would run out before you had money to buy more?: never true In the past 12 mos, the food you bought just didn't last and you didn't have money to buy more?: never true Highest level of school completed/degree received: Bachelor's degree Smoking Status: Never smoker Do you use any of these nicotine containing products: None How often do you have a drink containing alcohol: 2-4 times a month Alcohol type: wine How often do you have six or more drinks on one occasion: Never AUDIT-C Alcohol total score: 2 Non-prescribed substance use: denies use How often does anyone, including family, friends and others, physically hurt you: never How often does anyone, including family, friends and others, insult or talk down to you: never How often does anyone, including family, friends and others, threaten you with harm: never How often does anyone, including family, friends and others, scream or curse at you: never service: No Exam Narrative: Exam Narrative: Alert and oriented. Somewhat anxious, tachycardic at this time. Her ears eyes nose clear. Otherwise normal heart sounds. Lungs are clear bilaterally. No difficulty was moving extremities. Examination of the breasts shows multiple times size lesions that are raised with scarred edges and central scabbing. On the left breast there is a lesion with surrounding erythema and some erythema following lymph channels. I do palpate this area which is tender but I do not palpate a mass. On her arms patient has a few of these lesions. There are other scarred areas noted. Const: Vital Signs, click to edit/add: Vital Signs - 24 hr 02/24/25 18:39 Temperature 98.1 F Pulse Rate [Pulse Oximeter] 122 H Respiratory Rate 18 Blood Pressure [Le ft Upper Arm] 145/107 H Pulse Oximetry 97 Oxygen Delivery Me thod Room Air Documenting provider has reviewed patient's vital signs: yes Course Course ED Course: Differential diagnosis includes but is not limited to cellulitis, lymphangitis, abscess. Likely not inflammatory breast cancer as patient has had frequent mammograms and ultrasound. Patient does finally admit to picking wounds. I think that she is definitely exacerbating of these lesions by D scabbing them. However, I do think she has underlying tendency for folliculitis. She also has some lesions on her arms. She states that she also gets lesions in her armpits. To her knowledge she has never had MRSA. There is no evidence of pus formation at this time. She notes that Keflex has worked well for her in the past. Thus, I will be treating for MSSA. At this time will check CBC, basic metabolic panel, CRP. Will also give 1 dose of IV Rocephin as cephalosporins seemed to work well for her in the past. Finally, will obtain ultrasound of the left breast to ensure no evidence of abscess. Vital Signs Vital signs: Initial Vital Signs Temperature 98.1 F 02/24/25 18:39 Temperature Source Temporal Artery Scan 02/24/25 18:39 Pulse Rate 122 H 02/24/25 18:39 Respiratory Rate 18 02/24/25 18:39 Blood Pressure 145/107 H 02/24/25 18:39 Blood Pressure Mean 119 H 02/24/25 18:39 Blood Pressure Position Sitting 02/24/25 18:39 Pulse Oximetry 97 02/24/25 18:39 Oxygen Delivery Method Room Air 02/24/25 18:39 Vital Signs Temperature 98.1 F 02/24/25 18:39 Pulse Rate 122 H 02/24/25 18:39 Respiratory Rate 18 02/24/25 18:39 Blood Pressure 145/107 H 02/24/25 18:39 Pulse Oximetry 97 02/24/25 18:39 Oxygen Delivery Method Room Air 02/24/25 18:39 Temperature 98.1 F 02/24/25 18:39 Pulse Rate 122 H 02/24/25 18:39 Respiratory Rate 18 02/24/25 18:39 Blood Pressure 145/107 H 02/24/25 18:39 Pulse Oximetry 97 02/24/25 18:39 Oxygen Delivery Method Room Air 02/24/25 18:39 Medications Administered Medications: Discontinued Medications Generic Name Dose Route Start Last Admin Trade Name Shari PRN Reason Stop Dose Admin Ceftriaxone Sodium 1 gm/ 100 mls @ 200 mls/hr 02/24/25 19:09 02/24/25 20:20 Sodium Chloride IVPB 02/24/25 19:10 Infused ONCE ONE Infusion Ketorolac Tromethamine 15 mg 02/24/25 19:09 02/24/25 19:44 Ketorolac 15 Mg/Ml Inj IVP 02/24/25 19:10 15 mg ONCE ONE Administration Ondansetron HCl 4 mg 02/24/25 19:09 02/24/25 19:47 Ondansetron 2 Mg/Ml Inj IVP 02/24/25 19:10 4 mg ONCE ONE Administration Medical Decision Making MDM Narrative Medical decision making narrative: 1. Cellulitis-left breast cellulitis with lymphadenitis. Fortunately no evidence of underlying abscess. Patient received Rocephin 1 g IV. She will start on Keflex 500 mg q.i.d. tomorrow morning at 0800 hours. This medication given through our [employer] machine. She will use warm compresses to her left breast. We spoke about the importance of washing her bras on hot in the washer and not real wearing them. Also spoke about possibly bathing with dunne oxyl in the shower. I do think it would benefit her to see Dermatology as well. CRP within normal limits as well as white count. Patient is without evidence of sepsis. Heart rate normalized after treatment of discomfort with Toradol and Zofran. 2. Disposition-home at this time. Patient will return for fever, vomiting, worsening redness or swelling of the breast. Medical Records Medical records reviewed: Yes I reviewed the patient's medical records Lab Data Lab results reviewed: Yes I reviewed the patient's lab results Labs: Lab Results 02/24/25 Range/Units 19:58 WBC 8.47 (4.50-11.00) K/uL RBC 4.30 (4.00-5.20) m/uL Hgb 14.1 (12.0-16.0) gm/dL Hct 42.5 (33.0-51.0) % MCV 99 (80-100) fL MCH 33 (26-34) pg MCHC 33 (32-36) gm/dL RDW Coeff of Shaun 12.3 (11.5-15.5) % Plt Count 257 (140-440) K/uL Neut % (Auto) 73.4 H (42.0-72.0) % Lymph % (Auto) 16.9 L (20-44) % Petroleum % (Auto) 7.0 (0.0-11.0) % Eos % (Auto) 2.4 (0.0-7.0) % Baso % (Auto) 0.2 (0.0-3.0) % Neut # (Auto) 6.20 (1.7-7.0) K/uL Lymph # (Auto) 1.40 (0.90-2.90) K/uL Petroleum # (Auto) 0.60 (0.00-0.90) K/UL Eos # (Auto) 0.20 (0.00-0.50) K/uL Baso # (Auto) 0.02 (0.00-0.30) K/uL Abs Immat Gran (auto) 0.01 (0.00-0.30) K/uL Imm/Tot Granulo (auto) 0.1 % Sodium 132 L (135-149) mmol/L Potassium 4.2 (3.6-5.1) mmol/L Chloride 98 (96-114) mmol/L Carbon Dioxide 20 (20-32) mmol/L Anion Gap 14 (7-15) mEq/L BUN 16 (5-24) mg/dL Creatinine 0.8 (0.5-1.5) mg/dL Estimated Creat Clear 80.72 Estimated GFR 95 ml/min Glucose 98 (60-115) mg/dL Calcium 9.4 (8.4-10.6) mg/dL C-Reactive Protein 0.8 (0.5-1.0) mg/dL Discharge Plan Discharge Clinical Impression: Cellulitis of left breast Patient Disposition: Home, Self-Care Condition: Improved Additional Instructions: Start oral antibiotics at 0800 hours tomorrow morning. We will put Keflex in our [employer] [facility] machine for you to take. Warm compresses to area of concern. Follow-up with your primary MD for a recheck to ensure improvement. If you start experiencing fever, worsening redness, vomiting please return to the ER for further evaluation. Ibuprofen or Tylenol as needed for discomfort. Dunne Oxyl wash may be helpful. Recommend daily laundering of bras or T shirts that touch breast. Prescriptions: No Action trazodone 150 mg tablet 150 mg PO HS sertraline 50 mg tablet 150 mg PO DAILY senna 8.6 mg capsule 8.6 mg PO DAILY PRN (Reason: constipation) Qty: 90 0RF Zepbound 2.5 mg/0.5 mL pen injector 2.5 mg subcut Ozempic 0.25 mg or 0.5 mg (2 mg/3 mL) pen injector 0.25 mg subcut QWEEK Rx Instructions: for 4 weeks Follow Up/Referrals: Judi Owen PA [Referring, Family Practice] Stand Alone Forms: MyHealth Info Instructions
--- NOTE | 2025-02-24 19:09 | CRLHL7_ITS ---
For Patients: As a result of the Cures Act, medical imaging exams and procedure reports are released immediately into your electronic medical record. You may view this report before your referring provider. If you have questions, please contact your health care provider. LEFT BREAST ULTRASOUND CLINICAL HISTORY: LEFT breast soreness. COMPARISON: Outside ultrasound and mammogram January 2025. TECHNIQUE: Real-time ultrasound imaging of LEFT breast with imaging documentation. FINDINGS: Targeted ultrasound LEFT breast 9 o`clock 10 cm from the nipple performed. No abscess. No mass. IMPRESSION: No suspicious findings. RECOMMENDATIONS: Clinical follow-up. BI-RADS Category 1: Negative Dictated by Nas Patterson MD @ 02/25/2025 9:16:41 AM jj/Dictated by: Nas Patterson MD @ 02/25/2025 9:16:00 AM (Electronically Signed)
[2025-02-24] MEDS: ONDANSETRON 2 MG/ML inj 4 MG IVP (19:47)
[2025-02-24] MEDS: cefTRIAXone 1 GM in 0.9 % SODIUM CHLORIDE Mini-bag 100 ML IVPB (19:48)
[2025-02-24 20:05] LABS: Hematocrit* 42.5 % (33.0-51.0); Hemoglobin* 14.1 gm/dL (12.0-16.0); Immature Granulocytes Abs Auto 0.01 K/uL (0.00-0.30); Immature Granulocytes Pct Auto 0.1 %; Mean Corpuscular HGB Conc 33 gm/dL (32-36); Mean Corpuscular Hemoglobin 33 pg (26-34); Mean Corpuscular Volume 99 fL (80-100); RDW Coefficient of Variation % 12.3 % (11.5-15.5); Red Blood Count* 4.30 m/uL (4.00-5.20); White Blood Count* 8.47 K/uL (4.50-11.00)
[2025-02-24 20:09] LABS: Lymphocytes Absolute Auto 1.40 K/uL (0.90-2.90); Slide Review Reflex No
[2025-02-24 20:18] LABS: Chloride* 98 mmol/L (96-114); Potassium* 4.2 mmol/L (3.6-5.1); Sodium* 132 mmol/L (135-149)
[2025-02-24 20:21] LABS: Anion Gap 14 mEq/L (7-15); Blood Urea Nitrogen* 16 mg/dL (5-24); Calcium* 9.4 mg/dL (8.4-10.6); Carbon Dioxide* 20 mmol/L (20-32); Creatinine* 0.8 mg/dL (0.5-1.5); Est. Creatinine Clearance* 80.72; Estimated Glomerular Filt Rate 95 ml/min; Glucose* 98 mg/dL (60-115)
== END 2025-02-24 20:56 | disposition home or self-care (01) ==
PROVIDERS: Emergency Provider Family Medicine; PCP Family Medicine
DX: L03.313 Cellulitis of chest wall (principal); I88.9 Nonspecific lymphadenitis, unspecified; Z79.85 Long-term (current) use of injectable non-insulin antidiabetic drugs
CPT/HCPCS: 36415; 76642; 80048; 85025; 86140; 96365; 96375; 99284; 99285; J0696; J1885; J2405